=== PATIENT | female | born 1955 | race Caucasian/White ===

== ENCOUNTER → 2018-02-13 | Outpatient (CLI) | payer BC ==
[2018-02-13 18:52] LABS: ADD UMIC YES; UR AMORPHOUS CRYSTAL FEW /HPF (NONE SEEN); UR ASCORBIC ACID 20 mg/dL (NEGATIVE); UR BACTERIA FEW /HPF (NONE SEEN); UR BILIRUBIN (Dip) NEGATIVE (NEGATIVE); UR BLOOD (Dip) NEGATIVE (NEGATIVE); UR CLARITY CLOUDY (CLEAR); UR COLOR YELLOW (YELLOW); UR GLUCOSE (Dip) NEGATIVE (NEGATIVE); UR KETONES (Dip) NEGATIVE (NEGATIVE); UR LEUKOCYTE ESTERASE (Dip) TRACE Leu/ul (NEGATIVE); UR NITRITE (Dip) POSITIVE (NEGATIVE); UR RBC 2 /HPF (0-5); UR SPECIFIC GRAVITY (Dip) 1.013 (1.003-1.030); UR TOTAL PROTEIN (Dip) NEGATIVE (NEGATIVE); UR UROBILINOGEN (Dip) NEGATIVE (NEGATIVE); UR WBC 11 /HPF (0-5)
== END | disposition home or self-care (01) ==
LOC: LAB 18:28
DX: N39.0 Urinary tract infection, site not specified (principal); Z00.00 Encounter for general adult medical examination without abnormal findings
CPT/HCPCS: 81001; 84443; 87086

== ENCOUNTER → 2018-02-14 | Outpatient (CLI) | payer BC | END | disposition home or self-care (01) | LOC: EKG 06:29 | DX: Z00.00 Encounter for general adult medical examination without abnormal findings (principal) ==

== ENCOUNTER → 2018-02-18 | Outpatient (CLI) | payer BC | END | disposition home or self-care (01) | LOC: EKG 15:05 | DX: N39.0 Urinary tract infection, site not specified (principal); Z00.00 Encounter for general adult medical examination without abnormal findings | CPT/HCPCS: 93005 ==

== ENCOUNTER → 2018-02-27 | Outpatient (CLI) | payer BC | END | disposition home or self-care (01) | LOC: LAB 08:22 | DX: S39.012D Strain of muscle, fascia and tendon of lower back, subsequent encounter (principal); X58.XXXD Exposure to other specified factors, subsequent encounter | CPT/HCPCS: 72100 ==

== ENCOUNTER → 2018-04-18 | Outpatient (CLI) | payer BC | END | disposition home or self-care (01) | LOC: LAB 11:25 | DX: J02.9 Acute pharyngitis, unspecified (principal) ==

== ENCOUNTER → 2018-05-15 | Outpatient (CLI) | payer BC | END | disposition home or self-care (01) | LOC: HKI 09:38 | DX: M70.61 Trochanteric bursitis, right hip (principal); M76.31 Iliotibial band syndrome, right leg; M54.16 Radiculopathy, lumbar region | CPT/HCPCS: 73502 ==

== ENCOUNTER → 2018-07-16 | Outpatient (CLI) | payer BC ==
[2018-07-16 12:53] LABS: ADD UMIC YES; UR ASCORBIC ACID NEGATIVE (NEGATIVE); UR BACTERIA FEW /HPF (NONE SEEN); UR BILIRUBIN (Dip) NEGATIVE (NEGATIVE); UR BLOOD (Dip) 1+ mg/dL (NEGATIVE); UR CLARITY SLIGHTLY CLOUDY (CLEAR); UR COLOR YELLOW (YELLOW); UR GLUCOSE (Dip) NEGATIVE (NEGATIVE); UR KETONES (Dip) NEGATIVE (NEGATIVE); UR LEUKOCYTE ESTERASE (Dip) 1+ Leu/ul (NEGATIVE); UR NITRITE (Dip) POSITIVE (NEGATIVE); UR RBC 11 /HPF (0-5); UR SPECIFIC GRAVITY (Dip) 1.015 (1.003-1.030); UR TOTAL PROTEIN (Dip) NEGATIVE (NEGATIVE); UR UROBILINOGEN (Dip) NEGATIVE (NEGATIVE); UR WBC 40 /HPF (0-5)
== END | disposition home or self-care (01) ==
LOC: LAB 12:36
DX: N39.0 Urinary tract infection, site not specified (principal)
CPT/HCPCS: 81001; 87086

== ENCOUNTER → 2018-07-31 | Outpatient (CLI) | payer BC | END | disposition home or self-care (01) | LOC: HKI 14:45 | DX: M70.61 Trochanteric bursitis, right hip (principal); M54.31 Sciatica, right side | CPT/HCPCS: 20610 ==

== ENCOUNTER → 2018-10-02 | Outpatient (CLI) | payer BC | END | disposition home or self-care (01) | LOC: RAD 10:43 | DX: D68.9 Coagulation defect, unspecified (principal); K21.9 Gastro-esophageal reflux disease without esophagitis; M96.1 Postlaminectomy syndrome, not elsewhere classified | CPT/HCPCS: 71045; 93005 ==

== ENCOUNTER → 2018-10-06 | Outpatient (CLI) | payer BC ==
[2018-10-06 10:42] LABS: ADD MAN DIFF? NO
[2018-10-06 10:44] LABS: WHITE BLOOD COUNT 5.7 10^3/ul (4.8-10.8)
[2018-10-06 10:44] LABS: BASOPHIL # 0.1 10^3/ul (0.0-0.1); BASOPHILS % 1.2 % (0.0-2.0); EOSINOPHILS # 0.1 10^3/ul (0.0-0.5); EOSINOPHILS % 1.8 % (0.0-7.0); HEMATOCRIT 45.5 % (37.0-47.0); HEMOGLOBIN 15.4 g/dl (12.0-16.0); LYMPHOCYTES # 1.4 10^3/ul (0.8-2.9); LYMPHOCYTES % 24.6 % (15.0-51.0); MEAN CORPUSCULAR HEMOGLOBIN 29.8 pg (29.0-33.0); MEAN CORPUSCULAR HGB CONC 33.8 g/dl (32.0-37.0); MEAN CORPUSCULAR VOLUME 88.2 fl (82.0-101.0); MONOCYTE # 0.3 10^3/ul (0.3-0.9); MONOCYTES % 4.9 % (0.0-11.0); NEUTROPHIL # 3.8 10^3/ul (1.6-7.5); PLATELET COUNT 261 10^3/UL (140-415); RED BLOOD COUNT 5.16 10^6/ul (4.20-5.40); RED CELL DISTRIBUTION WIDTH 11.8 % (11.5-14.5)
[2018-10-06 10:46] LABS: ADD UMIC YES; UR ASCORBIC ACID NEGATIVE (NEGATIVE); UR BACTERIA FEW /HPF (NONE SEEN); UR BILIRUBIN (Dip) NEGATIVE (NEGATIVE); UR BLOOD (Dip) NEGATIVE (NEGATIVE); UR CLARITY SLIGHTLY CLOUDY (CLEAR); UR COLOR YELLOW (YELLOW); UR GLUCOSE (Dip) NEGATIVE (NEGATIVE); UR KETONES (Dip) NEGATIVE (NEGATIVE); UR LEUKOCYTE ESTERASE (Dip) TRACE Leu/ul (NEGATIVE); UR MUCUS FEW /HPF (NONE SEEN); UR NITRITE (Dip) POSITIVE (NEGATIVE); UR RBC 1 /HPF (0-5); UR SPECIFIC GRAVITY (Dip) 1.012 (1.003-1.030); UR SQUAMOUS EPITHELIAL CELL FEW /HPF (FEW); UR TOTAL PROTEIN (Dip) NEGATIVE (NEGATIVE); UR UROBILINOGEN (Dip) NEGATIVE (NEGATIVE); UR WBC 20 /HPF (0-5)
[2018-10-06 11:02] LABS: INR 0.93; PROTIME 12.6 Sec (11.9-14.9)
[2018-10-06 11:03] LABS: PARTIAL THROMBOPLASTIN TIME 31.5 Sec (23.0-35.0)
[2018-10-06 11:14] LABS: ALANINE AMINOTRANSFERASE 74 IU/L (13-69); ALBUMIN 4.8 g/dl (3.3-4.9); ALKALINE PHOSPHATASE 114 IU/L (42-121); ANION GAP 9 (5-13); BILIRUBIN,INDIRECT 0.7 mg/dl (0-1.1); BILIRUBIN,TOTAL 0.7 mg/dl (0.2-1.3); BLOOD UREA NITROGEN 17 mg/dl (7-20); CARBON DIOXIDE 30 mmol/L (21-31); CHLORIDE 102 mmol/L (97-110); CREATININE 0.65 mg/dl (0.44-1.00); Estimated GFR > 60 mL/min (>60); GLUCOSE 98 mg/dl (70-220); POTASSIUM 4.2 mmol/L (3.5-5.1); SODIUM 141 mmol/L (135-144); TOTAL PROTEIN 7.8 g/dl (6.1-8.1)
[2018-10-06 11:16] LABS: ASPARTATE AMINO TRANSFERASE 41 IU/L (15-46); CALCIUM 9.9 mg/dl (8.4-10.2)
[2018-10-06 11:45] LABS: ERYTHROCYTE SEDIMENTATION RATE 3 mm/Hr (0-30)
== END | disposition home or self-care (01) ==
LOC: LAB 10:17
DX: D68.9 Coagulation defect, unspecified (principal)
CPT/HCPCS: 80053; 81001; 85025; 85610; 85651; 85730

== ENCOUNTER 2018-10-13 05:40 | Inpatient (IN) | payer BC ==
[2018-10-13] MEDS: CEFAZOLIN 2 GM/50 ML (PMX) 50 ML IVPB (06:44)
[2018-10-13] MEDS ORDERED: PROPOFOL 20 ML (06:59)
[2018-10-13] MEDS ORDERED: MEPERIDINE 100 MG INJ (06:59)
[2018-10-13] MEDS ORDERED: NEOSTIGMINE 3 MG/3 ML SYRINGE ×2 (06:59→07:47)
[2018-10-13] MEDS ORDERED: GLYCOPYRROLATE 0.4 MG INJ ×2 (06:59→07:47)
[2018-10-13] MEDS ORDERED: SUCCINYLCHOLINE CHLORIDE 100 MG/5 ML SYG IV (06:59)
[2018-10-13] MEDS ORDERED: LIDOCAINE 2% (SDV) 5 ML INJ (06:59)
[2018-10-13] MEDS ORDERED: ROCURONIUM 50 MG INJ ×2 (06:59→07:47)
[2018-10-13] MEDS ORDERED: GELATIN SIZE 100 SPONGE (07:06)
[2018-10-13] MEDS ORDERED: THROMBIN 20,000 UNIT VIAL (07:07)
[2018-10-13] MEDS ORDERED: EPHEDrine 25 MG/5 ML SYG (08:06)
[2018-10-13] MEDS: POLYMYXIN/BACITRACIN 1L IRRIG IRR (08:06)
[2018-10-13] MEDS: BUPIVACAINE 0.25% (MPF) 30 ML INJ (08:06)
[2018-10-13] MEDS ORDERED: METOCLOPRAMIDE 10 MG INJ (08:15)
[2018-10-13] MEDS ORDERED: ONDANSETRON 4 MG INJ (08:15)
[2018-10-13] MEDS ORDERED: EPHEDrine 25 MG/5 ML SYG IV (09:30)
[2018-10-13] MEDS ORDERED: FENTAnyl 50 MCG/ML VIAL IV ×2 (09:30)
[2018-10-13] MEDS ORDERED: LABETALOL HCL 20MG INJ IV (09:30)
[2018-10-13] MEDS ORDERED: MEPERIDINE 25 MG INJ IV (09:30)
[2018-10-13] MEDS ORDERED: HYDROmorphONE 1 MG/5 ML IV SYRINGE IV (09:30)
[2018-10-13] MEDS ORDERED: METOCLOPRAMIDE 10 MG INJ IV (09:30)
[2018-10-13] MEDS ORDERED: MIDAZOLAM 1 MG/ML 2 ML INJ IV (09:30)
[2018-10-13] MEDS ORDERED: DIPHENHYDRAMINE 50 MG INJ IV (09:30)
[2018-10-13] MEDS ORDERED: hydrALAzine 20 MG INJ IV (09:30)
[2018-10-13] MEDS: LACTATED RINGER'S 1,000 ML IV ×2 (10:07→10:09)
[2018-10-13] MEDS: HYDROmorphONE 1 MG/5 ML IV SYRINGE IV ×2 (10:23→10:41)
[2018-10-13] MEDS: ONDANSETRON 4 MG INJ IV ×2 (10:23→23:45)
[2018-10-13] MEDS ORDERED: AL HYDROX/MG HYDROX/SIMETH 30 ML CUP PO (10:30)
[2018-10-13] MEDS ORDERED: NALOXONE (0.4 MG/ML) INJ IV (10:30)
[2018-10-13] MEDS ORDERED: DIAZEPAM 5 MG TAB PO (10:30)
[2018-10-13] MEDS ORDERED: NACL 0.9% 3 ML SYG IV (10:30)
[2018-10-13] MEDS ORDERED: PROCHLORPERAZINE 10 MG TAB PO (10:30)
[2018-10-13] MEDS ORDERED: CEPASTAT LOZENGE MT (10:30)
[2018-10-13] MEDS ORDERED: HYDROCODONE/APAP (5/325) TAB PO ×2 (10:30)
[2018-10-13] MEDS ORDERED: DIAZEPAM 5 MG/ML SYG IM (10:30)
[2018-10-13] MEDS ORDERED: BETHANECHOL 25 MG TAB PO (10:30)
[2018-10-13] MEDS ORDERED: ZOLPIDEM 5 MG TAB PO (10:30)
[2018-10-13] MEDS ORDERED: ACETAMINOPHEN 325 MG TAB PO (10:30)
[2018-10-13] MEDS: FENTAnyl 50 MCG/ML VIAL IV ×2 (10:33→10:59)
[2018-10-13] MEDS: HYDROmorphONE 0.2 MG/ML PCA IV (10:53)
[2018-10-13] MEDS: CEFAZOLIN 1 GM/50 ML (PMX) 50 ML IVPB ×3 (11:58→23:46)
[2018-10-13] MEDS: DEXTROSE 5%-0.45% NACL 1,000 ML IV ×2 (13:55→20:14)
[2018-10-13] MEDS: RANITIDINE 150 MG TAB PO (21:17)
[2018-10-13] MEDS: DIPHENHYDRAMINE 50 MG CAP PO (23:46)
[2018-10-14 05:23] LABS: HEMATOCRIT 39.7 % (37.0-47.0); HEMOGLOBIN 13.4 g/dl (12.0-16.0)
[2018-10-14] MEDS: CEFAZOLIN 1 GM/50 ML (PMX) 50 ML IVPB (05:53)
[2018-10-14 05:54] LABS: ANION GAP 10 (5-13); BLOOD UREA NITROGEN 8 mg/dl (7-20); CALCIUM 9.2 mg/dl (8.4-10.2); CARBON DIOXIDE 28 mmol/L (21-31); CHLORIDE 102 mmol/L (97-110); CREATININE 0.56 mg/dl (0.44-1.00); Estimated GFR > 60 mL/min (>60); GLUCOSE 112 mg/dl (70-220); POTASSIUM 3.8 mmol/L (3.5-5.1); SODIUM 140 mmol/L (135-144)
[2018-10-14] MEDS: DEXTROSE 5%-0.45% NACL 1,000 ML IV (06:14)
[2018-10-14] MEDS: ONDANSETRON 4 MG INJ IV (07:33)
[2018-10-14] MEDS ORDERED: BETHANECHOL 25 MG TAB PO (08:00)
[2018-10-14] MEDS ORDERED: HYDROCODONE/APAP (5/325) TAB PO (08:30)
[2018-10-14] MEDS: TRIMETHOBENZAMIDE 100 MG/ML VIAL IM (09:21)
[2018-10-14] MEDS: RANITIDINE 150 MG TAB PO (10:02)
[2018-10-14] MEDS: FERROUS SULFATE (EC) 325 MG TAB PO ×2 (10:02→16:37)
[2018-10-14] MEDS: HYDROCODONE/APAP (5/325) TAB PO ×2 (10:03→16:37)
[2018-10-14] MEDS: ASCORBIC ACID 500 MG TAB PO (10:04)
[2018-10-14] MEDS: DOCUSATE SODIUM 100 MG CAP PO (10:04)
[2018-10-14 15:13] LABS: HEPATITIS B SURFACE ANTIGEN NEGATIVE (NEGATIVE)
[2018-10-14 15:31] LABS: HEPATITIS C VIRAL ANTIBODY NEGATIVE (NEGATIVE)
[2018-10-14 19:18] LABS: ADD UMIC YES; UR ASCORBIC ACID NEGATIVE (NEGATIVE); UR BILIRUBIN (Dip) NEGATIVE (NEGATIVE); UR BLOOD (Dip) 1+ mg/dL (NEGATIVE); UR CLARITY CLEAR (CLEAR); UR COLOR STRAW (YELLOW); UR GLUCOSE (Dip) NEGATIVE (NEGATIVE); UR KETONES (Dip) NEGATIVE (NEGATIVE); UR LEUKOCYTE ESTERASE (Dip) 3+ Leu/ul (NEGATIVE); UR NITRITE (Dip) NEGATIVE (NEGATIVE); UR RBC 1 /HPF (0-5); UR SPECIFIC GRAVITY (Dip) 1.006 (1.003-1.030); UR TOTAL PROTEIN (Dip) NEGATIVE (NEGATIVE); UR UROBILINOGEN (Dip) NEGATIVE (NEGATIVE); UR WBC 17 /HPF (0-5)
== END 2018-10-14 18:45 | disposition home or self-care (01) | DRG 517 ==
LOC: REC 05:40 → MS1 11:36
PROVIDERS: Orthopaedic Surgery
PROC: 01NB0ZZ Release Lumbar Nerve, Open Approach (ICD-10-PCS; principal; 2018-10-13 07:00)
DX: M48.061 Spinal stenosis, lumbar region without neurogenic claudication (principal)
CPT/HCPCS: 72020; 80048; 81001; 85014; 85018; 86703; 86803; 86850; 86900; 86901; 86920; 87340; 88304; 97110; 97116; 97161